=== PATIENT | female | born 1995 | race Caucasian/White ===

== ENCOUNTER 2017-07-09 08:05 | Emergency (ER) | payer OTHER ==
[~2017-07-09] VITALS: Ht 167.6 cm; Wt 55.9 kg
--- NOTE | 2017-07-09 08:08 | ED.REPORT ---
HPI-Abd Pain F Under 40 Date of Service Jul 09, 2017 ED Provider: Dr. Adames The pt is a 21 y/o female with a hx of SVT who presents to the ED complaining of dysuria, onset this morning. Associated sx include back pain. She denies hematuria, vomiting, and fever. Her current sx are similar to her previous UTIs. The pt is sexually active. Her last period was 3 months ago. She is on control. Nursing Notes Stated Complaint: POSSIBLE BLADDER INFECTION Nursing Notes Reviewed: Yes Allergies: Coded Allergies: No Known Allergies (Unverified Allergy, Unknown, 09/17/16) Scheduled ([ control pill]) PO DAILY Nitrofurantoin Monohyd/M-Cryst (MacroBid) 100 Mg Capsule 100 MG PO BID Scheduled PRN Phenazopyridine (Phenazopyridine) 100 Mg Tablet 100 MG PO TID PRN PRN For Pain General Time Seen by MD: 08:08 Chief Complaint Dysuria Hx Obtained From: Patient Arrived By: Walk-in Sudden in Onset?: Yes Onset Occurred: 1 - 4 hours ago Symptom Duration: Since onset Location: : Back Quality: Painful Severity: Current: Mild Severity: Maximum: Mild Recent Healthcare: No recent doctor visit Similar Sx Previous: Yes Past Medical History Past Medical History SVT Past Surgical History Denies Smoking History Never Smoker Social History Alcohol Use: Denies alcohol use Drug Use: Denies drug use Ambulatory Status Independent Review of Systems Constitutional: Denies: Fever GI: Denies: Vomiting Female: Reports: Dysuria, Denies: Hematuria Musculoskeletal: Reports: Back pain Complete sys rev & neg: except as marked. Physical Exam Initial Vital Signs Vital Signs (First) Date Time Temp Pulse Resp B/P Pulse Ox O2 Delivery O2 Flow Rate FiO2 07/09/17 08:09 36.1 72 18 121/82 100 Room Air Initial VS: Reviewed Head / Eyes: Atraumatic, Normocephalic Neck: Supple, Non-tender, Full range of motion Extremities: Vascular intact, Neuro intact, No swelling, No tenderness Skin: Warm, Dry, No cyanosis Neurologic: Alert, Oriented, Nonfocal General/Constitutional: Awake, Alert, No acute distress, Well appearing, Cooperative Respiratory / Chest: Atraumatic, Breath sounds NL, Breath sounds = bilat, No respiratory distress, No rales, No rhonchi, No wheezing Cardiovascular: Heart rate NL, Regular rhythm, Heart sounds NL Abdomen: Atraumatic, Soft, No guarding, No rebound Mild lower abdominal tenderness Back: Atraumatic, Full range of motion, Painless range of motion Mild CVA tenderness Female Genitourinary: Exam deferred Re-Eval/Medical Decision Re-Evaluation/Progress : Time of Eval: 08:29 Re-Evaluation/Progress Note: Rechecked pt. Discussed lab results, diagnosis and plan to discharge. Pt understands and agrees with the plan. F/U instruction and RTER warning given. All questions addressed. Counseled Regarding: Diagnosis, Lab results, Need for follow-up, When/why to return to ED Discharge & Departure Primary Impression: UTI (urinary tract infection) Urinary tract infection type: site unspecified Hematuria presence: without hematuria Qualified Code: N39.0 - Urinary tract infection, site not specified Disposition: Home Discharge Condition All VS Reviewed: Yes Condition: Stable Patient Instructions: Urinary Tract Infection in Women (ED) Additional Instructions: Macrobid twice daily for 3 days. Ibuprofen or Tylenol as needed for pain. Drink at least 3 L of water daily for the next few days. Take Pyridium ( phenazopyridine) as needed for burning. Referrals: Fransisco Martinez MD (PCP) Scribe Attestation Portions of this note were transcribed by Anjana Muir. I,, personally performed the history,physical exam and medical decision-making;I reviewed and confirmed the accuracy of the information in the transcribed note. Signed by Madisyn Dorman. 07/09/17 copies to: Fransisco Martinez MD, Kirk H MD Jul 09, 2017 08:08 Anjana Muir Jul 09, 2017 08:12
[2017-07-09 08:09] VITALS: BP 121/82; PULSE 72; RESP 18; O2SAT 100
[2017-07-09] MEDS ORDERED: Birth control pill PO (08:21)
[2017-07-09] MEDS ORDERED: Nitrofurantoin Monohyd-Macrocryst 100 mg Capsule PO ONE (08:30)
[2017-07-09] MEDS ORDERED: Phenazopyridine 97.5 mg Tablet PO ONE (08:30)
[2017-07-09] MEDS ORDERED: PHEN-773 PO (08:44)
[2017-07-09] MEDS ORDERED: NITR100 PO (08:44)
[2017-07-09 08:55] VITALS: BP 121/82; PULSE 72; RESP 18; O2SAT 100
== END 2017-07-09 08:55 | disposition home or self-care (01) ==
LOC: SED 08:21
DX: N39.0 Urinary tract infection, site not specified (principal); I47.1 Supraventricular tachycardia; Z79.3 Long term (current) use of hormonal contraceptives

== ENCOUNTER 2017-08-11 09:31 | Emergency (ER) | payer OTHER ==
[~2017-08-11] VITALS: Ht 167.6 cm; Wt 56.8 kg
[~2017-08-11 09:31] MED LIST: Birth control pill PO; NITR100 PO; PHEN-773 PO
[2017-08-11 09:34] VITALS: BP 127/82; PULSE 89; RESP 15; O2SAT 100
--- NOTE | 2017-08-11 10:26 | ED.REPORT ---
HPI-General Illness Date of Service Aug 11, 2017 ED Provider: Shannan Hull MD The pt is a 21 y/o female presenting to the ED c/o R eye pain. She describes a pressure behind her R eye, w/ blurred vision, that began this morning and got worse while she was working. She does not feel anything scratchy in her eye. Denies numbness, tingling, fevers, cough, or chills. Nursing Notes Stated Complaint: PRESSURE IN RT EYE Chief Complaint: R eye pain Nursing Notes Reviewed: Yes Allergies: Coded Allergies: No Known Allergies (Unverified Allergy, Unknown, 09/17/16) Scheduled ([ control pill]) PO DAILY Nitrofurantoin Monohyd/M-Cryst (MacroBid) 100 Mg Capsule 100 MG PO BID Scheduled PRN Phenazopyridine (Phenazopyridine) 100 Mg Tablet 100 MG PO TID PRN PRN For Pain General Time Seen by MD: 09:56 Chief Complaint Other (R eye pain ) Hx Obtained From: Patient Arrived By: Walk-in Onset Occurred: 1 - 4 hours ago Symptom Duration: Since onset Recent Healthcare: No recent hospitalization, Recent doctor visit Similar Sx Previous: No Past Medical History Past Medical History SVT Past Surgical History Denies Smoking History Never Smoker Social History Alcohol Use: Denies alcohol use Drug Use: Denies drug use Ambulatory Status Independent Review of Systems Full Review of Systems Constitutional: Denies: Chills, Fever Eyes: Reports: Blurred right, Eye pain right Respiratory: Denies: Non-productive cough Neurologic: Denies: Numbness (or tingling ) Physical Exam Vital Signs Vital Signs Date Time Temp Pulse Resp B/P Pulse Ox O2 Delivery O2 Flow Rate FiO2 08/11/17 09:34 36.2 89 15 127/82 100 Room Air Initial VS: Reviewed General/Constitutional: Well-developed, Well-nourished ENT: Mucous membranes moist, Conjunctiva normal, No scleral icterus Neck: Supple, Non-tender, Full range of motion Respiratory: Breath sounds normal, Clear to auscultation, No respiratory distress Cardiovascular: Regular rate & rhythm, Heart sounds normal, Intact distal pulses Extremities: Vascular intact, Neuro intact, No swelling, No tenderness Skin: Warm, Dry, No cyanosis Neurologic: Alert, Oriented, Nonfocal Psychiatric: Mood/affect normal, Behavior normal, Normal thought content Head / Eyes: Normocephalic, PERRL, EOMI L fundus is normal; Upper portion of R eye is obscured on funduscopic exam. Lower portion of the eye shows the lower part of the disc appearing normal and normal vessels in the lower portion of the retina. Concern for superior retinal detachment Re-Eval/Medical Decision Source of Hx: Old records Time of Eval: 12:13 Re-Evaluation/Progress Note: Rechecked pt and discussed plan for the pt to see the communications project lead. Consultation : Referral / Consult Name: [facility] Call Returned at: 12:20 Note: Dr. Grimaldo, opthamologist, will see the pt. Counseled Regarding: Diagnosis, Need for follow-up, When/why to return to ED Discharge & Departure Primary Impression: Retinal detachment Laterality: right Qualified Code: H33.21 - Serous retinal detachment, right eye Disposition: Home Discharge Condition All VS Reviewed: Yes Condition: Stable Additional Instructions: I am concerned that there is more going on with your right eye. I have spoken with Dr Grimaldo, opthomologist. I would like you to go directly to their clinic so he can see and further evaulate you. It is important that you do go to see the opthomologist to make sure you do not lose vision in this eye. thank you so much for waiting so long today! [facility] Address: [address] [place] [id number] Referrals: Fransisco Martinez MD (PCP) [facility] Scribdenise Attestation Portions of this note were transcribed by Frandy Ascencio. I, Dr. Hull personally performed the history, physical exam and medical decision-making; I reviewed and confirmed the accuracy of the information in the transcribed note. copies to: [facility]; Fransisco Martinez MD, Shawna L MD Aug 11, 2017 10:26 Frandy Ascencio Aug 11, 2017 11:28
== END 2017-08-11 12:43 | disposition home or self-care (01) ==
LOC: SED 09:31
DX: H33.21 Serous retinal detachment, right eye (principal)